=== PATIENT | female | born 1965 ===

== ENCOUNTER 2021-01-20 07:00 | Day surgery (SDC) | payer OTHER ==
[~2021-01-20 07:00] MED LIST: ADIPEX-P37.5 MG PO; CALCIUM500 M2 PO; D3 + K2 DOTS 11 EACH PO; GABAPENTIN800 M1 PO; METFORMIN HCL500 M3 PO; PRESERVISION A1 EAC2 PO; PROBIOTIC1 EAC2 PO; VITAMIN C100 MG PO
== END 2021-01-20 21:30 | disposition home or self-care (01) ==
LOC: CIR.AMB 07:00
PROVIDERS: ATTEND Orthopaedic Surgery Hand Surgery
DX: M19.032 Primary osteoarthritis, left wrist (principal); Z20.822 Contact with and (suspected) exposure to COVID-19
CPT/HCPCS: 25332; 64782; 25215; C1776

== ENCOUNTER 2022-11-04 15:19 | Emergency (ER) | payer OTHER ==
[~2022-11-04] VITALS: Ht 167.6 cm; Wt 69.4 kg
[2022-11-04] MEDS ORDERED: DICLOFENAC SODI75 MG PO (17:17)
== END 2022-11-04 17:37 | disposition home or self-care (01) ==
LOC: ER 15:19
DX: G56.01 Carpal tunnel syndrome, right upper limb (principal)